=== PATIENT | male | born 1935 | race Caucasian/White ===

== ENCOUNTER 2019-11-07 20:34 | Inpatient (IN) ==
--- NOTE | 2019-11-07 21:53 | Diag Imaging Result Doc PS360 ---
EXAM: CHEST-PORTABLE HISTORY: altered mental status TECHNIQUE: Single view COMPARISON: 05/08/2014 FINDINGS: The lungs are well expanded. The heart is not enlarged. There are sternal wires. The vessels are not distended. There are no infiltrates. No effusion identified. IMPRESSION: Negative exam. Electronically signed by Ronald Garcia 11/07/2019 9:50 PM
[2019-11-07 21:54] LABS: BASO# 0.03 X1000 (0.0-0.2); BASO% 0.2 % (0.0-0.8); EOS# 0.07 X1000 (0.0-0.7); EOS% 0.4 % (0.0-10.0); HEMATOCRIT 40.9 % (42.0-52.0); HEMOGLOBIN 13.5 g/dL (14.0-18.0); IMM GRAN# 0.04 X1000 (0.0-0.04); IMM GRAN% 0.3 % (0.0-0.5); LYMPH# 0.65 X1000 (1.2-3.4); LYMPH% 4.1 % (20.5-51.1); MCH 28.9 PG (27-31); MCV 87.6 FL (81-99); MONO# 0.52 X1000 (0.11-0.59); MONO% 3.3 % (1.7-9.3); MPV 9.4 FL (7.4-10.4); NEUT# 14.39 X1000 (1.4-6.5); NEUT% 91.7 % (42.2-75.2); PLT 170 X1000 (130-400); RBC 4.67 XMIL (4.7-6.1); RDW 13.3 % (11.5-14.5)
--- NOTE | 2019-11-07 21:55 | Diag Imaging Result Doc PS360 ---
EXAM : CT HEAD/C-SPINE W/O CONTRAST HISTORY: fall TECHNIQUE: 1. CT head without intravenous contrast 2. CT cervical spine without intravenous contrast COMPARISON: None. FINDINGS: Head: No parenchymal hemorrhage. No epidural or subdural hematoma. No subarachnoid hemorrhage. There is atrophy with chronic microvascular ischemic changes. Old right basal ganglia lacunar infarct. No mass identified on this noncontrasted exam. No hydrocephalus. No skull fracture. Cervical spine: There are degenerative changes and reversal of the normal curvature. No precervical soft tissue swelling. No subluxation. No fracture. IMPRESSION: Head: No hemorrhage. No injury. Cervical spine: No acute fracture. This exam was performed using automated exposure control, adjustment of mA or kV according to patient size, and/or use of iterative reconstruction technique. Electronically signed by Ronald Garcia 11/07/2019 9:53 PM
[2019-11-07 21:56] LABS: INR 1.1; PROTIME 14.3 Seconds (11.0-16.0)
[2019-11-07 22:09] LABS: ALB/GLOB RATIO 1.3; CREATININE 1.7 mg/dL (0.7-1.2); POTASSIUM 3.8 mmol/L (3.5-5.1); TOTAL BILIRUBIN 1.01 mg/dL (0.20-1.00); TOTAL PROTEIN 7.1 g/dL (6.3-8.3)
--- NOTE | 2019-11-07 22:24 | EKG Report ---
Test Performed on : 11/07/2019 9:30:39 PM Test Reason : Stroke like symptoms Blood Pressure : / mmHG Vent. Rate : 095 BPM Atrial Rate : 095 BPM P-R Int : 190 ms QRS Dur : 096 ms QT Int : 318 ms P-R-T Axes : 052 -31 151 degrees QTc Int : 399 ms Normal sinus rhythm. Possible Left atrial enlargement Left axis deviation Left ventricular hypertrophy with repolarization abnormality Abnormal ECG When compared with ECG of 24-JAN-2014 11:36, T wave inversion now evident in Anterolateral leads Unconfirmed Result
[2019-11-07] MEDS ORDERED: NS 1,000 ML IV ONE (22:29)
--- NOTE | 2019-11-07 22:52 | PROVIDER DOCUMENTATION ---
This chart was entered by Mally Mccarty Scribe, acting as scribe for Cristofer Hernandez MD. HPI-General Adult - General Chief Complaint: Altered Mental Status Stated Complaint: ams,fall Time Seen by Provider: 11/07/19 21:31 Source: patient Allergies/Adverse Reactions: Patient Allergies Allergy/AdvReac Type Severity Reaction Status Date / Time No Known Allergies Allergy Verified 11/08/19 03:27 Home Medications: Home Medication List Medication Instructions Recorded Confirmed Last Taken Type Aspirin 81 mg PO DAILY 12/25/13 11/08/19 04/02/16 07:00 History LISINOpril [Prinivil] 40 mg PO DAILY 12/25/13 11/08/19 04/02/16 07:00 History Metoprolol Succinate 50 mg PO DAILY 12/25/13 11/08/19 04/01/16 07:00 History Potassium Chloride [Klor-Con M10] 10 meq PO BID 12/25/13 11/08/19 04/02/16 07:00 History Amlodipine [Norvasc] 5 mg PO DAILY 04/02/16 11/08/19 04/02/16 07:00 History ATORVAstatin [Lipitor] 10 mg PO QHS 11/08/19 11/08/19 Unknown History Clopidogrel Bisulfate [Clopidogrel] 75 mg PO DAILY 11/08/19 11/08/19 Unknown History Isosorbide Mononitrate E.r. [Imdur] 30 mg PO DAILY 11/08/19 11/08/19 Unknown History Meclizine [Antivert] 12.5 mg PO DAILY PRN PRN 11/08/19 11/08/19 Unknown History - History of Present Illness -Gen Adult Nature of Presenting Problems: pt is a 84 yr old male presenting via EMS after being found in floor, lying on his face by family, family reports they had tried to call pt multiple times this afternoon with no answer. family reports they took pt to PCP this AM after pt became confused, was having difficulty ambulating with his walker and complained of shortness of breath and back pain. per family PCP gave pt a new blood pressure medication but he has not began taking it. family reports last time pt was "normal" was last night. pt lives alone Location of Pain/Injury: reports: back Severity: reports: moderate Onset/Duration: reports: this morning Timing: reports: still present, getting worse Context/Activities at Onset: reports: light activity Modifying Factors: improves with: nothing Associated Symptoms: reports: back/neck pain, dizziness, fatigue, nausea, shortness of breath, vomiting, weakness, trouble walking, other (confusion). denies: cough, fever/chills, headaches, seizure Similar Symptoms Previously?: Yes Recently seen or treated by another doctor?: Yes (pcp- Dr Love today) Review of Systems - Adult - REVIEW OF SYSTEMS - ADULT Constitutional: reports: fatique. denies: chills, fever Eyes: reports: no symptoms reported Ears, Nose, Mouth & Throat: denies: ear pain, sinus problem, throat pain Cardiovascular: denies: chest pain, palpitations, syncope Respiratory: reports: shortness of breath. denies: cough, wheezing Gastrointestinal: reports: nausea, vomiting. denies: abdominal pain, diarrhea Genitourinary: reports: no symptoms reported Musculoskeletal: reports: back pain. denies: joint pain, neck pain Integumentary: reports: no symptoms reported Neurological: reports: loss of balance. denies: dizziness/vertigo, headache/migraines, seizure, syncope Psychiatric: reports: no symptoms reported Endocrine: reports: no symptoms reported Hematologic/Lymphatic: reports: no symptoms reported Allergic/Immunologic: reports: no symptoms reported All Other Systems: Reviewed and Negative Past History - Adult - PAST MEDICAL HISTORY-ADULT Review of Records: reports: Old Records Reviewed, Nursing Assessment Review, Medications Reviewed, Social history reviewed & non-contributory. Major Childhood Illnesses: reports: denies history Cardiovascular: reports: CAD, HTN, hyperlipidemia Respiratory: reports: denies history Gastrointestinal: reports: denies history Obstetrical/Gynecological: reports: denies history Genitourinary: reports: denies history Musculoskeletal: reports: denies history Neurological: reports: denies history Endocrine/Immune: reports: denies history Other Conditions: reports: denies history - PRIOR SURGERIES/PROCEDURES Surgical/Procedure History: reports: CABG (2002), cardiac stent (x 1) - IMMUNIZATION STATUS Childhood Immunizations: See Nurse Assessment Flu Vaccine: See Nurse Assessment - FAMILY HISTORY Family History: reviewed, not pertinent - SOCIAL HISTORY Smoking: chew (snuff) Substance Use: denies Living Situation: alone Physical Exam-General - CONSTITUTIONAL General Appearance: alert, no apparent distress, slow to respond, other (disheveled) - EYES Eyes: PERRL/EOMI - HEAD, EARS, NOSE, MOUTH & THROAT HENMT: normocephalic/atraumatic, moist mucous membranes, normal ENT inspection - NECK Neck: non-tender, full range of motion, supple, normal inspection - RESPIRATORY Respiratory: chest non-tender, lungs clear, normal breath sounds - CARDIOVASCULAR Cardiovascular: normal peripheral pulses, regular rate, rhythm, no edema - GASTROINTESTINAL (ABDOMEN) Abdominal Exam: normal bowel sounds, non tender, soft - LYMPHATIC Lymphatic: no adenopathy - MUSCULOSKELETAL Extremity: normal range of motion, non-tender, pedal edema (bilateral pretibial edema, worse on right) - SKIN Integumentary: normal color, normal turgor, warm/dry - PSYCHIATRIC Psych/Mental Status: disheveled Progress - PLAN OF CARE/RESULTS Progress/Plan/Lab Results: Vital Signs - 8 hr 11/07/19 20:49 Temperature 97.7 F Pulse Rate 104 H Respiratory Rate 15 Blood Pressure 142/72 O2 Sat by Pulse Oximetry 98 Laboratory Results - last 24 hr 11/07/19 11/07/19 11/07/19 20:57 20:57 20:57 WBC 15.70 H RBC 4.67 L Hgb 13.5 L Hct 40.9 L MCV 87.6 MCH 28.9 MCHC 33.0 RDW Std Deviation 13.3 Plt Count 170 MPV 9.4 Immature Gran % (Auto) 0.3 Neut % (Auto) 91.7 H Lymph % (Auto) 4.1 L [place] % (Auto) 3.3 Eos % (Auto) 0.4 Baso % (Auto) 0.2 Immature Gran # (Auto) 0.04 Neut # (Auto) 14.39 H Lymph # (Auto) 0.65 L [place] # (Auto) 0.52 Eos # (Auto) 0.07 Baso # (Auto) 0.03 PT 14.3 INR 1.10 Sodium 140 Potassium 3.8 Chloride 99 Carbon Dioxide 23 L Anion Gap 18 BUN 15 Creatinine 1.7 H Estimated GFR/1.73 m2 39 BUN/Creatinine Ratio 9 Glucose 98 Calculated Osmolality 280 Calcium 10.0 Total Bilirubin 1.01 H AST 37 H ALT 22 Alkaline Phosphatase 94 Total Protein 7.1 Albumin 4.0 Globulin 3.1 Albumin/Globulin Ratio 1.3 Orders Category Date Time Status Cardiac Monitoring DIRECTED Care 11/07/19 21:32 Active Saline Loc NOW Care 11/07/19 21:32 Active CHEST-PORTABLE [RAD] Stat Exams 11/07/19 21:[address] HEAD/C-SPINE W/O CONTRAST [CT] Stat Exams 11/07/19 21:23 Completed CBC WITH ELECTRONIC DIFF [HEME] Stat Lab 11/07/19 20:57 Completed COMPREHENSIVE METABOLIC PANEL [CHEM] Stat Lab 11/07/19 20:57 Completed PROTIME WITH INR [COAG] Stat Lab 11/07/19 20:57 Completed URINALYSIS W/POSS RFLX CULT [URINALYSIS] Stat Lab 11/07/19 21:32 Uncollected URINE DRUG SCREEN Stat Lab 11/07/19 21:32 Uncollected EKG [EKG] Stat Ther 11/07/19 21:32 Draft Result Diagrams: 11/07/19 20:57 11/07/19 20:57 - XRAY 1 XRAY Study: Chest Impression: Normal ( Signed EXAM: CHEST-PORTABLE HISTORY: altered mental status TECHNIQUE: Single view COMPARISON: 05/08/2014 FINDINGS: The lungs are well expanded. The heart is not enlarged. There are sternal wires. The vessels are not distended. There are no infiltrates. No effusion identified. IMPRESSION: Negative exam. Electronically signed by Ronald Garcia 11/07/2019 9:50 PM 11/07/192149 Interpreting Physician: Ronald Garcia MD Dictated Date/Time: 11/07/192149 cc: Cristofer Hernandez MD;) - CT/MRI 1 CT Study: Cervical Spine, Head Impression: Abnormal ( Signed EXAM : CT HEAD/C-SPINE W/O CONTRAST HISTORY: fall TECHNIQUE: 1. CT head without intravenous contrast 2. CT cervical spine without intravenous contrast COMPARISON: None. FINDINGS: Head: No parenchymal hemorrhage. No epidural or subdural hematoma. No subarachnoid hemorrhage. There is atrophy with chronic microvascular ischemic changes. Old right basal ganglia lacunar infarct. No mass identified on this noncontrasted exam. No hydrocephalus. No skull fracture. Cervical spine: There are degenerative changes and reversal of the normal curvature. No precervical soft tissue swelling. No subluxation. No fracture. IMPRESSION: Head: No hemorrhage. No injury. Cervical spine: No acute fracture. This exam was performed using automated exposure control, adjustment of mA or kV according to patient size, and/or use of iterative reconstruction technique. Electronically signed by Ronald Garcia 11/07/2019 9:53 PM 11/07/192152 Interpreting Physician: Ronald Garcia MD Dictated Date/Time: 11/07/192150 cc: Cristofer Hernandez MD;) - CONSULTS/PCP/HOSPITALIST Notification #1 *Consult/PCP/Hospitalist*: Dr. Desouza Time Discussed: 21:30 Consult Disposition: Admit Departure - Departure Date of Disposition Decision: 11/07/19 Time of Disposition Decision: 21:30 DIAGNOSIS: Encephalopathy acute Disposition: ADMITTED INPATIENT 09 Certified Medical Emergency: Emergent Condition: Stable - Critical Care Note This patient required my direct & personal management of CC.: No Attestation - Physician/ XIMENA Attestation Patient care was provided by Advanced Practice Provider:: No The physician spent face to face time with patient:: Yes Advanced Practice Provider documentation review:: Supervising physician onsite and consulted in the evaluation and care of this patient. The physician did have a face to face encounter with the patient. This chart was documented by the indicated scribe, (Mally Mccarty Scribe) and accurately reflects the services I performed and decisions made by me, Cristofer Hernandez MD, as attested by the provider's signature.
[2019-11-07 23:10] LABS: ALLEN TEST YES; BE -1.1 mmoll (-3.0-3.0); BLOOD TYPE ARTERIAL; METHB 1.4 % (0.0-1.5); O2(CT) 17.2 mL/dL (15.0-23.0); O2HB 95.7 % (95.0-99.0); PCO2(98.6) 33 mmHg (35-45); PO2(98.6) 85 mmHg (60-100); SAMPLE BLOOD; SAO2 98.9 % (95.0-100.0); THB 12.7 g/dL (11.5-17.4); pH(98.6) 7.44 (7.35-7.45)
[2019-11-07 23:12] LABS: MODALITY ROOM AIR
[2019-11-08] MEDS ORDERED: ROCEPHIN 1 GM in NS 50 ML IV ONE (00:26)
[2019-11-08 00:36] LABS: URINE SOURCE CATH
[2019-11-08 00:45] LABS: BILIRUBIN URINE NEGATIVE (NEGATIVE); BLOOD URINE LARGE (NEGATIVE); COLOR YELLOW; GLUCOSE URINE NEGATIVE (NEGATIVE); KETONE URINE 10 mg/dL (NEGATIVE); LEUKOCYTES URINE NEGATIVE (NEGATIVE); NITRITE URINE NEGATIVE (NEGATIVE); PH URINE 5.5; PROTEIN URINE TRACE mg/dL (NEGATIVE); SP GRAVITY URINE 1.015; TURBIDITY URINE CLEAR (CLEAR); UR EPITHELIAL CELLS <10 /HPF (<10); URINE BACTERIA NEGATIVE /HPF; URINE RBC <10 /HPF (<10); URINE WBC <10 /HPF (<10); UROBILINOGEN URINE 2 mg/dL (NORMAL)
[2019-11-08 01:00] LABS: UR AMPHETAMINES QUAL NONE DETECTED (NONE DETECT); UR BARBITUATES QUAL NONE DETECTED (NONE DETECT); UR BENZODIAZEPIN QUAL NONE DETECTED (NONE DETECT); UR CANNABINOIDS QUAL NONE DETECTED (NONE DETECT); UR COCAINE QUAL NONE DETECTED (NONE DETECT); UR METHADONE QUAL NONE DETECTED (NONE DETECT); UR OPIATES QUAL NONE DETECTED (NONE DETECT); UR OXYCODONE QUAL NONE DETECTED (NONE DETECT); UR PCP QUAL NONE DETECTED (NONE DETECT)
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
[2019-11-08] MEDS ORDERED: TYLENOL PO PRN (05:49)
[2019-11-08] MEDS ORDERED: ZOFRAN IV PRN (05:49)
[2019-11-08] MEDS ORDERED: NS 1,000 ML IV SCH ×2 (05:49→11:00)
--- NOTE | 2019-11-08 06:39 | Diag Imaging Result Doc PS360 ---
CT THORACIC SPINE W/O CONTRAST, CT LUMBAR SPINE W/O CONTRAST - 11/08/2019 INDICATION: injury COMPARISON: None FINDINGS: Thoracic spine: Alignment is anatomic. No fracture or subluxation. Vertebral body heights are preserved. There is mild multilevel degenerative disc disease. There are median sternotomy wires. There is advanced vascular disease throughout the aorta without evidence of dissection. Ascending thoracic aorta measures 3.7 cm. Lumbar spine: There is mild, grade 1 anterolisthesis of L4 on L5 by about 3 mm. No fractures. There is advanced disc degeneration at L2-L3 and L5-S1. No disc bulge or herniation. Advanced vascular disease of the abdominal aorta without significant aneurysm. No severe central canal stenosis. IMPRESSION: Advanced degenerative and senescent changes. No acute disease. Electronically signed by Alex Osullivan 11/08/2019 6:37 AM
[2019-11-08] MEDS: LOVENOX SUBQ SCH (06:45)
--- NOTE | 2019-11-08 09:43 | Diag Imaging Result Doc PS360 ---
MRI BRAIN W/WO CONTRAST - 11/08/2019 INDICATION: encephalopathy ?? Recurrent CVA COMPARISON: Head CT 11/07/2019 FINDINGS: There is no area of restricted diffusion. Stable mild diffuse cerebral atrophy. Stable moderate periventricular white matter chronic microvascular ischemia. No intracranial mass or hemorrhage. There is no abnormal contrast enhancement. Midline structures are unremarkable. IMPRESSION: Chronic ischemic changes of the brain. No acute process. Electronically signed by Alex Osullivan 11/08/2019 9:40 AM
[2019-11-08] MEDS: NS 1,000 ML IV SCH (11:51)
[2019-11-08 12:03] LABS: ALB/GLOB RATIO 1.7; ALBUMIN 3.2 g/dL (3.5-5.0); CALCIUM 8.5 mg/dL (8.8-10.2); CREATININE 1.5 mg/dL (0.7-1.2); POTASSIUM 3.6 mmol/L (3.5-5.1); TOTAL BILIRUBIN 0.89 mg/dL (0.20-1.00); TOTAL PROTEIN 5.1 g/dL (6.3-8.3)
[2019-11-08 12:08] LABS: BASO# 0.02 X1000 (0.0-0.2); BASO% 0.2 % (0.0-0.8); EOS% 1.2 % (0.0-10.0); HEMATOCRIT 35.2 % (42.0-52.0); HEMOGLOBIN 11.4 g/dL (14.0-18.0); IMM GRAN# 0.02 X1000 (0.0-0.04); IMM GRAN% 0.2 % (0.0-0.5); LYMPH# 1.72 X1000 (1.2-3.4); LYMPH% 19.9 % (20.5-51.1); MCH 28.7 PG (27-31); MCHC 32.4 g/dL (33-37); MCV 88.7 FL (81-99); MONO# 0.55 X1000 (0.11-0.59); MONO% 6.4 % (1.7-9.3); MPV 9.1 FL (7.4-10.4); NEUT# 6.22 X1000 (1.4-6.5); NEUT% 72.1 % (42.2-75.2); PLT 137 X1000 (130-400); RBC 3.97 XMIL (4.7-6.1); RDW 13.2 % (11.5-14.5); WBC 8.63 X1000 (4.8-10.8)
[2019-11-08 12:51] LABS: SED RATE 3 mm/hr (0-15)
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
[2019-11-08] MEDS: MAXIPIME 1 GM in NS 50 ML IV SCH (14:00)
[2019-11-09] MEDS: NS 1,000 ML IV SCH ×4 (00:43→17:55)
[2019-11-09] MEDS: MAXIPIME 1 GM in NS 50 ML IV SCH ×2 (01:32→13:12)
[2019-11-09] MEDS: LOVENOX SUBQ SCH (05:56)
[2019-11-09 06:54] LABS: BASO# 0.02 X1000 (0.0-0.2); BASO% 0.2 % (0.0-0.8); EOS# 0.19 X1000 (0.0-0.7); EOS% 2.1 % (0.0-10.0); HEMATOCRIT 35.1 % (42.0-52.0); HEMOGLOBIN 11.4 g/dL (14.0-18.0); IMM GRAN# 0.02 X1000 (0.0-0.04); IMM GRAN% 0.2 % (0.0-0.5); LYMPH# 1.06 X1000 (1.2-3.4); LYMPH% 11.9 % (20.5-51.1); MCH 28.9 PG (27-31); MCHC 32.5 g/dL (33-37); MCV 88.9 FL (81-99); MONO# 0.49 X1000 (0.11-0.59); MONO% 5.5 % (1.7-9.3); MPV 9.2 FL (7.4-10.4); NEUT# 7.13 X1000 (1.4-6.5); NEUT% 80.1 % (42.2-75.2); PLT 137 X1000 (130-400); RBC 3.95 XMIL (4.7-6.1); RDW 13.1 % (11.5-14.5); WBC 8.91 X1000 (4.8-10.8)
[2019-11-09 07:07] LABS: CALCIUM 8.5 mg/dL (8.8-10.2); CREATININE 1.4 mg/dL (0.7-1.2); MAGNESIUM 1.5 mg/dL (1.5-2.7); POTASSIUM 3.5 mmol/L (3.5-5.1)
[2019-11-09] MEDS ORDERED: MAGNESIUM SULFATE 2 GM/S.W.I. 2 GM/50 ML IVPB IV ONE (08:42)
[2019-11-09] MEDS: TOPROL XL PO SCH (10:17)
[2019-11-09] MEDS: ASPIRIN PO SCH (10:17)
[2019-11-09] MEDS: NORVASC PO SCH (10:18)
[2019-11-09] MEDS: PLAVIX PO SCH (10:18)
[2019-11-09] MEDS: IMDUR PO SCH (10:18)
[2019-11-09] MEDS ORDERED: LACTULOSE PO ONE (14:58)
--- NOTE | 2019-11-09 16:05 | EEG REPORT ---
DATE: 11/08/2019 EEG NUMBER: [id number] COMMENT: This is a digitally recorded EEG on an 84-year-old patient with baseline cognitive impairment, recent increased confusion, recently found down, question of seizure. FINDINGS: During waking, 7 to 7.5 Hz posterior rhythm is present bilaterally and reacts at times to eye opening. Background contains polymorphic and rhythmic theta over the frontal and central regions symmetrically. There is infrequent frontal delta while awake. Drowsing occurred with appearance of more generalized slowing. Stage 2 sleep was not recorded. Photic stimulation did not significantly alter the record. No definite epileptiform discharge was identified. INTERPRETATION: Abnormal EEG because of generalized slowing. CORRELATION: This is indicative of a diffuse encephalopathy and is nonspecific. The absence of epileptiform discharges on a single EEG does not exclude a clinical diagnosis of seizures, but there is nothing on this record to suggest the presence of a seizure disorder. cc: Dary Arora III, MD
[2019-11-09] MEDS: HALDOL IM PRN ×2 (17:57→23:50)
[2019-11-09 18:14] LABS: ALLEN TEST YES; BE 0.1 mmoll (-3.0-3.0); BLOOD TYPE ARTERIAL; METHB 1.3 % (0.0-1.5); O2(CT) 15.5 mL/dL (15.0-23.0); O2HB 94.9 % (95.0-99.0); PCO2(98.6) 33 mmHg (35-45); PO2(98.6) 79 mmHg (60-100); SAMPLE BLOOD; SAO2 98.3 % (95.0-100.0); THB 11.6 g/dL (11.5-17.4); pH(98.6) 7.46 (7.35-7.45)
[2019-11-09 18:15] LABS: MODALITY ROOM AIR
--- NOTE | 2019-11-09 18:16 | PROGRESS NOTE ---
DATE: 11/09/2019 SUBJECTIVE: The patient is awake and alert. He was able to take his medications and eat breakfast this morning. His family is present at the bedside. OBJECTIVE: Vital Signs: Temperature 98.1 degrees, blood pressure 148/67, heart rate 73, respirations 16, O2 saturation 99% on room air. General: This is a chronically ill-appearing elderly male sitting up in bed in no acute distress. Heart: S1, S2 normal. Regular rate and rhythm. Lungs: Equal air entry bilaterally. No wheezing. No rales. No rhonchi. Abdomen: Positive bowel sounds. Soft, nontender, nondistended. Extremities: No edema. No cyanosis. Neurologic: The patient is alert. LABS: White blood cell count 8.9, hemoglobin 11, hematocrit 35, platelets 137,000. Sodium 139, potassium 3.5, chloride 101, CO2 23, BUN 13, creatinine 1.4, glucose 60. ASSESSMENT AND PLAN: 1. Global encephalopathy. The etiology is unknown. The imaging does not give a clear picture of the cause for the patient's confusion. The laboratory studies today also are stable. We will continue to monitor closely for improvement. 2. Acute rhabdomyolysis. Continue on IV fluid hydration. 3. Acute kidney injury. Improved. Continue on IV fluid. 4. Dementia. Aware. 5. Coronary artery disease. Continue on the current cardiac medications. 6. Hypertension. Continue on the current antihypertensive regimen. 7. Constipation. We will start the patient on laxative therapy. 8. Deep vein thrombosis prophylaxis. Continue on Lovenox. cc: Sharmila Majano MD MTDD
--- NOTE | 2019-11-09 19:03 | Diag Imaging Result Doc PS360 ---
EXAM: CT HEAD W/O CONTRAST - 11/09/2019 HISTORY: encephalopathy TECHNIQUE: CT head without contrast COMPARISON: 11/07/2019 FINDINGS: There are atrophic changes and chronic microvascular ischemic changes similar to prior. There is no indication of recent infarct, although acute infarcts may not be immediately visible. There are atherosclerotic calcifications noted at the base the brain. There is no evidence of intracranial hemorrhage, mass effect, or midline shift. There is no evidence of skull fracture. IMPRESSION: Atrophic changes and chronic microvascular ischemic changes similar to prior. No visible acute intracranial abnormality. This exam was performed using automated exposure control, adjustment of mA or kV according to patient size, and/or use of iterative reconstruction technique. Electronically signed by Scott Gilliam 11/09/2019 7:01 PM
--- NOTE | 2019-11-09 19:21 | NEUROLOGY PROGRESS NOTE ---
DATE: 11/09/2019 Mr. Berg is awake and alert now. He was mostly attentive during my time at the bedside today. He reports not feeling well a few days ago but really does not seem to remember events leading to this hospitalization. He was not able to tell me the name of the hospital, to identify this as a hospital or to tell me the date. I did not test his cognitive function further. He has equal power in hand closing supervisor and good limb power on gross bedside testing. There is good lateral extraocular movement and slightly limited upgaze. Facial motility is symmetric. He was able to count fingers in the left and right visual field consistently. I did not test his visual acuity. I did not test his gait. Neck is supple. IMPRESSION: Likely baseline cognitive impairment with recent exacerbation associated with some fairly minor metabolic findings, moderately elevated blood pressure, concern that he might have fallen and struck his head. EEG showed generalized slowing but no epileptiform discharge or other evidence of seizure. Since he seems improved, certainly more alert and attentive today, I do not think we need to do anything urgently from Neurology standpoint. Thanks for asking us to see Mr. Berg. cc: MD JERRY Bush IIID
[2019-11-09] MEDS ORDERED: MIRALAX PO SCH (21:00)
[2019-11-10] MEDS: MAXIPIME 1 GM in NS 50 ML IV SCH ×4 (02:27→14:24)
[2019-11-10] MEDS: LOVENOX SUBQ SCH (05:59)
[2019-11-10] MEDS: NS 1,000 ML IV SCH ×3 (05:59→17:02)
[2019-11-10 06:56] LABS: HEMOGLOBIN 11.6 g/dL (14.0-18.0); MCH 28.4 PG (27-31); MCHC 33.1 g/dL (33-37); MCV 85.8 FL (81-99); MPV 9.2 FL (7.4-10.4); RBC 4.08 XMIL (4.7-6.1); RDW 12.8 % (11.5-14.5); WBC 9.35 X1000 (4.8-10.8)
[2019-11-10 07:24] LABS: AGAP 15; BUN 12 mg/dL (8-22); CALCIUM 8.4 mg/dL (8.8-10.2); CHLORIDE 102 mmol/L (98-107); COSMO 278; CREATININE 1.1 mg/dL (0.7-1.2); ESTIMATED GFR > 60; GLUCOSE 86 mg/dL (70-104); POTASSIUM 3.1 mmol/L (3.5-5.1); SODIUM 140 mmol/L (136-145); TCO2 23 mmol/L (25-35)
[2019-11-10] MEDS ORDERED: POTASSIUM CHLORIDE 20% LIQUID PO ONE (09:37)
[2019-11-10] MEDS: TOPROL XL PO SCH (10:17)
[2019-11-10] MEDS: IMDUR PO SCH (10:18)
[2019-11-10] MEDS: PLAVIX PO SCH (10:18)
[2019-11-10] MEDS: NORVASC PO SCH (10:18)
[2019-11-10] MEDS: ASPIRIN PO SCH (10:18)
[2019-11-10] MEDS ORDERED: MAGNESIUM SULFATE 2 GM/S.W.I. 2 GM/50 ML IVPB IV ONE (10:33)
--- NOTE | 2019-11-10 15:46 | PROGRESS NOTE ---
DATE: 11/10/2019 SUBJECTIVE: The patient is resting comfortably in bed. He was noted to be very confused last night and required Haldol. OBJECTIVE: Vital Signs: Temperature 98.2 degrees, blood pressure 139/58, heart rate 66, respirations 16, O2 saturation 98% on room air. General: This is a chronically ill-appearing elderly male lying in bed in no acute distress. Heart: S1, S2 normal. Regular rate and rhythm. Lungs: Clear to auscultation bilaterally. Abdomen: Positive bowel sounds. Soft, nontender, nondistended. Extremities: No edema, no cyanosis. Neurologic: The patient is oriented to person but appears to be confused. LABS: Hemoglobin 11, hematocrit 35, platelets 149,000. Sodium 140, potassium 3.1, CK 8872, magnesium 1.7, BUN 12, creatinine 1.1. ASSESSMENT AND PLAN: 1. Global encephalopathy. The patient is awake but he still has periods of confusion during the day with as well as at night, the EEG was reviewed. Neurology following. 2. Acute rhabdomyolysis. Worse today, will increase IV fluid rate and monitor closely. 3. Acute kidney injury. Slowly resolving. Continue with IV fluids. 4. Dementia. Aware. 5. Hypertension. Continue on the current antihypertensive regimen. 6. Coronary artery disease. Continue on the current cardiac regimen. 7. Deep vein thrombosis prophylaxis. Continue on Lovenox. 8. Disposition. Continue with physical therapy. cc: Sharmila Majano MD
[2019-11-10] MEDS: STERILE WATER INJ. INJ PRN (19:41)
[2019-11-10] MEDS: GEODON IM PRN (19:42)
[2019-11-11] MEDS: MAXIPIME 1 GM in NS 50 ML IV SCH ×2 (00:53→14:17)
[2019-11-11] MEDS: NS 1,000 ML IV SCH ×3 (00:53→17:19)
[2019-11-11] MEDS: LOVENOX SUBQ SCH (05:34)
[2019-11-11 07:03] LABS: HEMATOCRIT 36.1 % (42.0-52.0); HEMOGLOBIN 11.8 g/dL (14.0-18.0); MCH 28.2 PG (27-31); MCHC 32.7 g/dL (33-37); MCV 86.4 FL (81-99); RBC 4.18 XMIL (4.7-6.1); WBC 7.92 X1000 (4.8-10.8)
[2019-11-11 07:04] LABS: MPV 9.2 FL (7.4-10.4)
[2019-11-11 08:08] LABS: AGAP 13; ALBUMIN 3.2 g/dL (3.5-5.0); BUN 11 mg/dL (8-22); CHLORIDE 101 mmol/L (98-107); COSMO 276; CREATININE 1.1 mg/dL (0.7-1.2); ESTIMATED GFR > 60; GLUCOSE 88 mg/dL (70-104); POTASSIUM 3.7 mmol/L (3.5-5.1); SODIUM 139 mmol/L (136-145); TCO2 25 mmol/L (25-35)
[2019-11-11] MEDS: STERILE WATER INJ. INJ PRN (08:13)
[2019-11-11] MEDS: GEODON IM PRN (08:14)
[2019-11-11] MEDS: TOPROL XL PO SCH (09:09)
[2019-11-11] MEDS: NORVASC PO SCH (09:09)
[2019-11-11] MEDS: PLAVIX PO SCH (09:09)
[2019-11-11] MEDS: IMDUR PO SCH (09:09)
[2019-11-11] MEDS: ASPIRIN PO SCH (09:10)
[2019-11-11] MEDS ORDERED: SEROQUEL PO ONE (12:07)
[2019-11-11] MEDS ORDERED: ATIVAN IV ONE (13:12)
--- NOTE | 2019-11-11 14:37 | EKG Report ---
Test Performed on : 11/11/2019 1:56:47 PM Test Reason : QT interval Blood Pressure : / mmHG Vent. Rate : 081 BPM Atrial Rate : 081 BPM P-R Int : 138 ms QRS Dur : 086 ms QT Int : 388 ms P-R-T Axes : 022 -26 104 degrees QTc Int : 450 ms Normal sinus rhythm. Possible Left atrial enlargement Septal infarct , age undetermined ST & T wave abnormality, consider lateral ischemia Abnormal ECG When compared with ECG of 07-NOV-2019 21:30, (Unconfirmed) Septal infarct is now present Nonspecific T wave abnormality, worse in Inferior leads QT has lengthened Confirmed by Roby BO, Lynsey Wilson ([id number]) on 11/12/2019 5:30:06 PM
--- NOTE | 2019-11-11 15:11 | Diag Imaging Result Doc PS360 ---
EXAM: CHEST-1 VIEW - 11/11/2019 HISTORY: dyspnea TECHNIQUE: Portable chest one view COMPARISON: 11/07/2019 FINDINGS: Heart size appears normal. There are sternal wires from previous surgery again seen. There are stable right basilar granuloma from old granulomatous disease. There is mild prominence of central vascular markings. There is no dense consolidation, gross pulmonary edema, pleural effusion, or pneumothorax identified. IMPRESSION: Mild prominence of central vascular markings. No other evidence of acute disease. Electronically signed by Scott Gilliam 11/11/2019 3:08 PM
[2019-11-11 16:38] LABS: CK INDEX 0.5 (0.0-2.5); CK-MB 17.86 ng/mL (0.0-5.0)
--- NOTE | 2019-11-11 17:14 | PROGRESS NOTE ---
DATE: 11/11/2019 SUBJECTIVE: The patient was noted to be very agitated overnight and this morning he was not oriented at all. He received Geodon, Seroquel, and Ativan, and was transferred to [facility]. OBJECTIVE: Vital Signs: Temperature 98.4 degrees, blood pressure 110/44, heart rate 71, respirations 22, O2 saturation 100% on 2 L nasal cannula. Intake 4 L. Output 850. General: This is a chronically ill-appearing, elderly male lying in bed, in no acute distress. Heart: S1, S2 normal. Regular rate and rhythm. Lungs: Clear to auscultation bilaterally. No wheezing. No rales. No rhonchi. Abdomen: Positive bowel sounds. Soft, nontender, nondistended. Extremities: The right leg is for bigger than the left. Neurologic: The patient is very agitated and moving all over the bed. He is unable to answer questions appropriately. LABS: White blood cell count 7.9, hemoglobin 11, hematocrit 36, platelets 169,000. Sodium 139, potassium 3.7, chloride 101, CO2 25, BUN 11, creatinine 1.1, glucose 88, phosphorus 2, magnesium 1.8. CK 3,869. Troponin 194. Chest x-ray reveals no acute disease. EKG shows normal sinus rhythm. ASSESSMENT AND PLAN: 1. Global encephalopathy. The patient's mental status is worse today. His imaging and EEG do not reveal an etiology for the patient's confusion. He has no active infection that we have been able to find at this time. We will await further recommendations from the Neurologist. 2. Elevated troponin. We will order an echocardiogram and follow the cardiac enzymes and EKGs closely. Continue on Aspirin, Toprol, and plavix. 3. Acute rhabdomyolysis. Slowly improving. Continue with IV fluids. We will monitor closely. 4. Acute kidney injury. Resolved. 5. Dementia. Aware. 6. Hypertension. Controlled. 7. Hypophosphatemia. We will replace the patient's phosphorus. 8. Coronary artery disease. Continue on the current cardiac medications. 9. Deep vein thrombosis prophylaxis. Continue on Lovenox. cc: Sharmila Majano MD MTDD
[2019-11-11 17:20] LABS: URINE SOURCE CATH
[2019-11-11 17:29] LABS: BILIRUBIN URINE NEGATIVE (NEGATIVE); BLOOD URINE MODERATE (NEGATIVE); COLOR YELLOW; GLUCOSE URINE NEGATIVE (NEGATIVE); KETONE URINE 20 mg/dL (NEGATIVE); LEUKOCYTES URINE NEGATIVE (NEGATIVE); NITRITE URINE NEGATIVE (NEGATIVE); PH URINE 5.5; PROTEIN URINE TRACE mg/dL (NEGATIVE); SP GRAVITY URINE 1.012; TURBIDITY URINE CLEAR (CLEAR); UR EPITHELIAL CELLS <10 /HPF (<10); URINE BACTERIA NEGATIVE /HPF; URINE RBC <10 /HPF (<10); URINE WBC <10 /HPF (<10); UROBILINOGEN URINE NORMAL (NORMAL)
[2019-11-11] MEDS: SEROQUEL PO SCH (20:08)
--- NOTE | 2019-11-11 21:41 | EKG Report ---
Test Performed on : 11/11/2019 9:05:59 PM Test Reason : Elevated troponin Blood Pressure : / mmHG Vent. Rate : 078 BPM Atrial Rate : 078 BPM P-R Int : 158 ms QRS Dur : 102 ms QT Int : 400 ms P-R-T Axes : 032 -31 139 degrees QTc Int : 456 ms Normal sinus rhythm. Possible Left atrial enlargement Left axis deviation ST & T wave abnormality, consider lateral ischemia Abnormal ECG When compared with ECG of 11-NOV-2019 13:56, (Unconfirmed) ST no longer depressed in Anterior leads Confirmed by Roby BO MRosa M Wilson ([id number]) on 11/12/2019 5:30:18 PM
[2019-11-11 22:39] LABS: CK INDEX 0.5 (0.0-2.5); CK-MB 12.08 ng/mL (0.0-5.0)
[2019-11-12] MEDS: NS 1,000 ML IV SCH (00:25)
[2019-11-12] MEDS: MAXIPIME 1 GM in NS 50 ML IV SCH (00:30)
[2019-11-12] MEDS: LOVENOX SUBQ SCH (04:55)
[2019-11-12 06:12] LABS: HEMATOCRIT 30.3 % (42.0-52.0); HEMOGLOBIN 9.9 g/dL (14.0-18.0); MCH 29.2 PG (27-31); MCHC 32.7 g/dL (33-37); MCV 89.4 FL (81-99); MPV 9.1 FL (7.4-10.4); RBC 3.39 XMIL (4.7-6.1); RDW 13.5 % (11.5-14.5); WBC 8.35 X1000 (4.8-10.8)
[2019-11-12 06:33] LABS: AGAP 14; ALBUMIN 2.7 g/dL (3.5-5.0); BUN 13 mg/dL (8-22); CALCIUM 8.7 mg/dL (8.8-10.2); CHLORIDE 108 mmol/L (98-107); CHOLESTEROL 117 mg/dL (0-200); COSMO 286; CREATININE 1.2 mg/dL (0.7-1.2); ESTIMATED GFR 58; GLUCOSE 80 mg/dL (70-104); HDL 39 mg/dL (35-55); LDL 60 mg/dL; PHOSPHORUS 2.6 mg/dL (2.7-4.5); POTASSIUM 3.6 mmol/L (3.5-5.1); SODIUM 144 mmol/L (136-145); TCO2 22 mmol/L (25-35); TRIGLYCERIDES 92 mg/dL (39-160); VLDL 18 mg/dL
[2019-11-12 06:55] LABS: CK PROFILE 1391 U/L (24-204)
[2019-11-12 07:10] LABS: CK INDEX 0.5 (0.0-2.5); CK-MB 6.81 ng/mL (0.0-5.0)
--- NOTE | 2019-11-12 07:28 | Diag Imaging Result Doc PS360 ---
EXAM: CHEST-1 VIEW HISTORY: dyspnea TECHNIQUE: Single view COMPARISON: 11/11/2019 FINDINGS: The lungs are well expanded. The heart is not enlarged. There are sternal wires. The vessels are not distended. There are mild increased markings in the left lung base. No effusion identified. IMPRESSION: There appears to be a small left lower lobe infiltrate Electronically signed by Ronald Garcia 11/12/2019 7:26 AM
--- NOTE | 2019-11-12 07:44 | EKG Report ---
Test Performed on : 11/12/2019 07:06:16 AM Test Reason : QT interval Blood Pressure : / mmHG Vent. Rate : 083 BPM Atrial Rate : 083 BPM P-R Int : 166 ms QRS Dur : 104 ms QT Int : 340 ms P-R-T Axes : 038 -35 145 degrees QTc Int : 399 ms Sinus rhythm. with premature atrial complexes. Possible Left atrial enlargement Left axis deviation Left ventricular hypertrophy with repolarization abnormality Abnormal ECG When compared with ECG of 11-NOV-2019 21:05, (Unconfirmed) premature atrial complexes. are now present QT has shortened Confirmed by Lynsey Ca MD ([id number]) on 11/12/2019 5:30:55 PM
[2019-11-12] MEDS: ASPIRIN PO SCH (08:10)
[2019-11-12] MEDS: IMDUR PO SCH (08:10)
[2019-11-12] MEDS: NORVASC PO SCH (08:10)
[2019-11-12] MEDS: TOPROL XL PO SCH (08:11)
[2019-11-12] MEDS: PLAVIX PO SCH (08:11)
[2019-11-12] MEDS: SEROQUEL PO SCH ×2 (08:11→20:14)
[2019-11-12] MEDS ORDERED: OFIRMEV 1000 MG/ISOTONIC SOLN 1,000 MG/100 ML BOTTLE IV PRN (08:29)
[2019-11-12] MEDS ORDERED: VANCOMYCIN IV PER PHARMACY MISC SCH (08:45)
--- NOTE | 2019-11-12 08:48 | Diag Imaging Result Doc PS360 ---
EXAM: CHEST-PORTABLE HISTORY: rule out PNA TECHNIQUE: Single view COMPARISON: 11/12/2019 FINDINGS: The lungs are well expanded. The heart is not enlarged. There are sternal wires. The vessels are not distended. There are mild increased markings in the left lung base. No effusion identified. IMPRESSION: Left basilar atelectasis versus a small infiltrate similar to the prior exam. Electronically signed by Ronald Garcia 11/12/2019 8:46 AM
[2019-11-12 09:44] LABS: URINE SOURCE CATH
[2019-11-12 09:59] LABS: BILIRUBIN URINE NEGATIVE (NEGATIVE); BLOOD URINE SMALL (NEGATIVE); COLOR YELLOW; GLUCOSE URINE NEGATIVE (NEGATIVE); KETONE URINE 40 mg/dL (NEGATIVE); LEUKOCYTES URINE SMALL (NEGATIVE); NITRITE URINE NEGATIVE (NEGATIVE); PROTEIN URINE TRACE mg/dL (NEGATIVE); SP GRAVITY URINE 1.018; TURBIDITY URINE CLEAR (CLEAR); UROBILINOGEN URINE NORMAL (NORMAL)
[2019-11-12] MEDS ORDERED: VANCOMYCIN 2.2 GM in NS 500 ML IV ONE (10:00)
[2019-11-12 10:01] LABS: UR EPITHELIAL CELLS <10 /HPF (<10); URINE BACTERIA NEGATIVE /HPF; URINE RBC <10 /HPF (<10)
--- NOTE | 2019-11-12 10:24 | CARDIOLOGY CONSULTATION ---
DATE: 11/12/2019 CHIEF COMPLAINT: Acute confusion and weakness. All history is obtained via the H and P, as well as a discussion with his sister. HISTORY OF PRESENT ILLNESS: Mr. Villa Berg is an 84-year-old, white male with a history of coronary disease and bypass grafting, normally followed by Dr. Driscoll as an outpatient, last visit in 02/2019. He was apparently doing well up until Tuesday morning, when he was more confused per his sister. Apparently, the day previous, he was in his usual state. He does have an issue with repeating a lot of things, and may carry a history of baseline dementia, but lives independently, functions enough to complete all of his ADL, and up until admission, he was actually driving. Sister is not aware of any acute pain complaints, other than the patient just saying he did not feel well on the day of presentation. Since then, he has been very confused, very difficult to get any sort of history from. He would not open his eyes to physical or verbal stimuli today. He moaned briefly, but otherwise did not participate in the exam or history. PAST MEDICAL HISTORY: 1. From chart review, is significant for coronary artery disease with coronary artery bypass grafting. This was done in 2002. He had a GREEN to the LAD, vein graft to an OM, vein graft to a PDA. His last cardiac catheterization was performed in 2013. At that time, the left main had a mid vessel 30% lesion. The left anterior descending had an occlusion in the proximal vessel with severe small-vessel disease in multiple diagonals at that site. Mid and distal LAD were visualized through an FLORES. FLORES was patent, although it had some tortuosity in the proximal vessel. Very small distal left anterior descending visualized through the FLORES. Circumflex is small overall with several aneurysmal segments in the proximal and mid vessel. AV circumflex was severely diseased, and bypassed obtuse marginal was visualized with competitive flow. The saphenous vein graft to the OM had mild ectasia throughout. It connected to a large OM system with mild diffuse disease. The right coronary has moderate-to- severe ectatic vessel in the proximal vessel, with occlusion in the mid vessel. Small RV branch seen at the site of the occlusion, which has a severe ostial lesion. The remainder of the RV branch appeared to be relatively normal. The saphenous vein graft to the right coronary has an ostial 90% lesion. The ostial 90% lesion was stented at [facility] the following day with a 3.5 x 15 mm Xience drug-eluting stent. Last nuclear scan was performed in 07/2017. He had normal perfusion, ejection fraction of 73%. 2. Hypertension. 3. Hyperlipidemia. 4. Smokeless tobacco use. 5. Chronic renal insufficiency. 6. Possible mild dementia. SOCIAL HISTORY: Lives independently. Smokeless tobacco use. FAMILY HISTORY: Unable to be obtained secondary to the patient's confusion. REVIEW OF SYSTEMS: Unable to be obtained secondary to the patient's confusion. PHYSICAL EXAMINATION: Vital Signs: The patient was febrile to 100.7 this morning at 4 a.m. His heart rates were anywhere from the 70s to the 90s. His blood pressure was 136/52. General: He is in no acute distress. Again very confused, does not interact with the examiner, or participate in the physical exam or history. HEENT: Oropharynx is moist. Poor dentition. Eye examination shows pink conjunctivae, white sclerae. Neck: No obvious thyromegaly or thyroid tenderness. Cardiovascular: He sounds to be in a regular rate and rhythm. He has no obvious murmurs. He has no S3. He has no lower extremity edema. He has warm and well perfused extremities. Chest: Clear bilaterally. He has no increased work of breathing. Abdomen: Soft, nontender, nondistended. No obvious organomegaly. Skin: Warm and dry throughout without any rashes. Neurological: He seems to be moving all extremities, but he does not cooperate with the exam or follow commands. PERTINENT DATA: His EKG on 11/07/2019 at 2130 shows sinus rhythm. He has ST depression noted in the lateral leads, suggestive of possible ischemia. This appears different from his EKG in 02/2019. Subsequent EKG on 11/11/2019 at 1356 shows some minor improvement in the ST depression. Subsequent EKG on 11/11/2019 at 2105 shows sinus rhythm, return of more significant ST depression in the lateral leads. This is consistent with the EKG on 11/12/2019 at 7:06. His most recent chest x-ray today demonstrates left basilar atelectasis versus a small infiltrate. Lab data shows white count 8.3, hematocrit of 30, platelet count 156,000. His sodium is 144, potassium 3.6, his BUN is 13, creatinine is 1.2. His CK initially was 7248 on presentation. That has subsequently trended down eventually to 1391 today. He had a troponin checked, which was 194. Subsequent check 6 hours later was 198, and check roughly 8 hours after that was 178. His LDL is 60. His UA is pending. ASSESSMENT: Mr. Berg is an 84-year-old male who presented with acute confusion. PLAN: At this point, the patient may be experiencing ischemia from a combination of infectious symptoms, as well as not taking his p.o. antianginals. Previously, he was on isosorbide, metoprolol, and amlodipine, as well as aspirin, Lipitor, and Plavix as anti-ischemics/antilipid and antiplatelet agents. He has not been receiving any of these oral medications. We will try initiating back his beta-blockade and nitroglycerin via nitroglycerin paste and IV Lopressor. We will follow up on the echocardiogram results. I do not believe clinically this is acute coronary syndrome. It is more likely supply/demand mismatch in a patient with baseline severe coronary disease who was not taking his antianginal medications. We will try to adjust his medical therapy, and follow up on his echo. cc: Walter Kang MD
[2019-11-12] MEDS: NITROGLYCERIN TOP SCH ×3 (10:31→21:12)
[2019-11-12] MEDS: CLINIMIX E 4.25%-5% SOLUTION 1,000 ML IV SCH ×2 (10:31→20:15)
[2019-11-12] MEDS: LOPRESSOR IV SCH ×3 (10:31→21:12)
[2019-11-12] MEDS: ZOSYN 3.375 GM in NS 50 ML IV SCH ×3 (10:32→21:12)
--- NOTE | 2019-11-12 18:05 | Extremity Venous Study ---
PROCEDURE NAME: Venous U/S Bilateral Legs - 11/08/2019 REFERRING PHYSICIAN: Dr. Desouza. REFERRING PHYSICIAN: Dr. Saunders. IT QUALITY ANALYST: Donald. INDICATIONS: Bilateral leg swelling, there is comparison study on 04/02/2016. FINDINGS: The deep and superficial veins of both lower extremities were imaged throughout their course, they are compressible, patent without thrombus. INTERPRETATION: No DVT or SVT of either lower extremity. This is unchanged compared to the prior study on 04/02/2016. cc: MD Whitley Brunner MD
--- NOTE | 2019-11-12 19:00 | PROGRESS NOTE ---
DATE: 11/12/2019 SUBJECTIVE: The patient is currently lethargic. He has been too sleepy to try and eat, when he is awake he is confused. OBJECTIVE: Vital Signs: Temperature 98.9 degrees, blood pressure 139/60, heart rate 84, respirations 22, O2 saturations 100% on room air, intake 1.4 L, output 500. General: This is a chronically ill-appearing elderly male lying in bed in no acute distress. Heart: S1, S2 normal. Regular rate and rhythm. Lungs: Equal air entry bilaterally. No wheezing, no rales, no rhonchi. Abdomen: Positive bowel sounds. Soft, nontender, nondistended. Extremities: No edema, no cyanosis, no calf tenderness. Neuro: The patient is lethargic. He does respond to painful stimuli. LABS: White blood cell count 8.3, hemoglobin 9.9, hematocrit 30, platelets 156,000. Sodium 144, potassium 3.6, chloride 108, CO2 22, BUN 13, creatinine 1.2, glucose 80, phosphorus 2.6. CK 1397, troponin T 178. IMAGING: Chest x-ray shows a small infiltrate in the left base. ASSESSMENT AND PLAN: 1. Global encephalopathy. The patient remains confused, according to the nursing staff the patient has periods of agitation and then requires Haldol. So far the patient's imaging does not reveal a source for his confusion. He does have an infiltrate that showed up on the x- ray today and he was febrile this morning. Will adjust the patient's antibiotics. Repeat cultures have been obtained. Neurology is following. A repeat EEG was ordered for today. The case was discussed with . 2. Elevated troponin. The patient's cardiac enzymes are elevated. The patient has been receiving his cardiac medications up until this morning due to his altered mental status. An echocardiogram has been ordered. Cardiology is following. 3. Left basilar pneumonia. The antibiotics have been adjusted and repeat cultures have been obtained. 4. Acute rhabdomyolysis. Slowly improving. 5. Severe protein calorie malnutrition. The patient has been started on Clinimix. 6. Dementia. Aware. 7. Coronary artery disease. Continue on the current cardiac medications. 8. Deep vein thrombosis prophylaxis. Continue on Lovenox. 9. Disposition. Palliative Care has been consulted to assist with goals of care. The patient's family was updated on the patient's medical condition this morning at the bedside. cc: Sharmila Majano MD MTDD
--- NOTE | 2019-11-12 19:56 | NEUROLOGY PROGRESS NOTE ---
DATE: 11/12/2019 SUBJECTIVE: Mr. Berg has been more difficult to keep alert. He had mild temperature elevation of 100.7 and then 100.1 earlier this morning, but is afebrile now. WBC count is 8000. CK declined from 7000 to 1000. Chest x-ray raises question of left basilar infiltrate. Brain MRI 11/08/2019 showed chronic changes and no evidence of inflammation. EEG 11/08/2019 showed generalized slowing with no definite epileptiform discharge. He received 2 doses of ziprasidone 10 mg, once on 11/10/2019 and once on 11/11/2019. He received quetiapine 25 mg on 11/11/2019. He received lorazepam 1 mg on 11/11/2019. He had 4 days of cefepime before that was stopped earlier today. On exam, he is awake briefly with persistent noxious stimulation. He followed simple commands inconsistently. When not vigorously stimulated, he sinks back to sleep. He did move about spontaneously, shifting the bed covers, moving his arms, using his hands appropriately. He did not speak to me. He has full lateral eye movement with passive head turning. Pupils react to light. Facial motility is symmetric. Head is unremarkable. Neck is supple. Limb tone is symmetric. Plantar response is silent bilaterally. IMPRESSION: Global encephalopathy, uncertain etiology. There is clear history of baseline cognitive impairment. I suspect he has exacerbation of his encephalopathy associated with medical illness and hospitalization. Defervescence is reassuring. I do not see clinical evidence of central nervous system infection. If he develops more fever, stiff neck or other specific features, we might need to consider lumbar puncture, but I do not think that is necessary now. I do not have any urgent suggestion from Neurology standpoint. I put in phone call for his sister, but her cellphone voicemail is not set up. I did not speak with family today. Thanks for asking Neurology to see Mr. Berg. cc: MD CHACHO Bush III
[2019-11-13] MEDS: LOPRESSOR IV SCH ×4 (03:31→20:35)
[2019-11-13] MEDS: ZOSYN 3.375 GM in NS 50 ML IV SCH ×4 (03:32→21:45)
[2019-11-13] MEDS: NITROGLYCERIN TOP SCH ×4 (03:32→21:45)
[2019-11-13] MEDS: CLINIMIX E 4.25%-5% SOLUTION 1,000 ML IV SCH ×2 (05:36→20:38)
[2019-11-13 06:13] LABS: HEMATOCRIT 32.2 % (42.0-52.0); HEMOGLOBIN 10.8 g/dL (14.0-18.0); MCH 29.3 PG (27-31); MCHC 33.5 g/dL (33-37); MCV 87.3 FL (81-99); MPV 8.9 FL (7.4-10.4); RBC 3.69 XMIL (4.7-6.1); RDW 13.2 % (11.5-14.5); WBC 8.52 X1000 (4.8-10.8)
[2019-11-13 06:33] LABS: AGAP 11; ALBUMIN 2.8 g/dL (3.5-5.0); BUN 18 mg/dL (8-22); CALCIUM 8.7 mg/dL (8.8-10.2); CHLORIDE 102 mmol/L (98-107); COSMO 281; CREATININE 1.1 mg/dL (0.7-1.2); ESTIMATED GFR > 60; GLUCOSE 132 mg/dL (70-104); PHOSPHORUS 2.1 mg/dL (2.7-4.5); POTASSIUM 3.4 mmol/L (3.5-5.1); SODIUM 139 mmol/L (136-145); TCO2 26 mmol/L (25-35)
[2019-11-13 06:35] LABS: ALBUMIN 2.6 g/dL (3.5-5.0); DIRECT BILIRUBIN 0.3 mg/dL (0.00-0.20); TOTAL BILIRUBIN 0.84 mg/dL (0.20-1.00); TOTAL PROTEIN 5.2 g/dL (6.3-8.3)
--- NOTE | 2019-11-13 06:43 | Diag Imaging Result Doc PS360 ---
EXAM: CHEST-1 VIEW HISTORY: pneumonia TECHNIQUE: Single view COMPARISON: 11/12/2019 FINDINGS: No cardiomegaly. The sternal wires and surgical clips. Atelectasis versus a small infiltrate in the left lung base. Right lung remains clear. Tiny left effusion. IMPRESSION: Stable chest Electronically signed by Ronald Garcia 11/13/2019 6:41 AM
[2019-11-13] MEDS: SEROQUEL PO SCH ×2 (09:52→20:26)
[2019-11-13] MEDS: PLAVIX PO SCH (09:52)
[2019-11-13] MEDS: NORVASC PO SCH (09:52)
[2019-11-13] MEDS: VANCOMYCIN 1,500 MG in NS 250 ML IV SCH (10:42)
[2019-11-13] MEDS: ASPIRIN PO SCH (10:42)
--- NOTE | 2019-11-13 12:18 | SEPSIS: TISSUE PERFUSION ASSMT ---
Sepsis: Tissue Perfusion Assmt - Physical Exam Assessment Date: 11/13/19 Time Assessment Initialized: 10:00 Vital Signs: Last Vital Signs Temp 100.8 F H 11/13/19 11:23 Pulse 103 H 11/13/19 11:23 Resp 18 11/13/19 11:23 BP 145/55 11/13/19 11:23 Pulse Ox 99 11/13/19 11:23 Height 5 ft 10 in Weight 76.459 kg Lung Sounds: lungs clear Heart Sounds: Regular Capillary Refill Time: Less Than 2 Seconds Peripheral Pulse Evaluation: radial (R): 2+, radial (L): 2+, dorsalis-pedis (R): 2+, dorsalis-pedis (L): 2+, posterior tibialis (R): 2+, posterior tibialis (L): 2+ Skin Exam: pink - Alternative Fluid Bolus Bolus Option: Alternative Fluid Resuscitation Bolus for morbidly obese patients with a BMI >30, Refer to [facility] [place] Body Weight Chart for Reference. Is patient's BMI >30?: No Fluid Bolus dosed using the [facility] [place] Body Weight Chart: No - Impression Impression: Tissue Perfusion Adequate - Plan Plan: See Orders
--- NOTE | 2019-11-13 12:53 | PROGRESS NOTE ---
DATE: 11/13/2019 INTERVAL HISTORY: No acute events overnight. Mr. Berg' sister is currently at bedside. SUBJECTIVE: Mr. Berg keeps his eyes closed, does not appear in any distress. He does not engage in the clinical encounter meaningfully. OBJECTIVE: Vital Signs: Temperature 100.8 degrees, pulse 103, respiratory rate 18, blood pressure 145/55, he is saturating 99% on room air. HEENT: Oral cavity is dry. Lungs: Air entry bilaterally equal. No wheeze, rhonchi, or crackles. Cardiovascular: S1, S2 normal. Regular. Tachycardic. No murmur, rub, or gallop. Abdomen: Soft, nontender. Extremities: He does, in fact, have right lower extremity edema, which is more than the left lower extremity, which is chronic for him. : He has a urine catheter. LABORATORY DATA: WBC 8.5, hemoglobin 10.8, platelets of 170,000. Potassium is 3.4, BUN 18, creatinine 1.1. He does have a drop in his creatine kinase. I will get vitamin B12 and RPR levels. MICROBIOLOGY: No positive data so far. IMAGING: Chest x-ray this morning suggests a small infiltrate in the left lung base and left pleural effusion. ASSESSMENT AND PLAN: 1. Acute encephalopathy on top of baseline dementia with behavioral disturbance. The patient remains confused. His head MRI did not have any acute stroke. I will address underlying condition, and monitor him in PVC unit. Follow up Vitamin B12 and RPR. 2. Sepsis due to left lower lobe pneumonia. Continue intravenous vancomycin, intravenous Zosyn, and follow up final blood culture results. I will repeat chest x-ray as needed. 3. Type 2 myocardial infarction leading to elevated troponin with history of coronary artery disease and coronary artery bypass graft in 2002. I will continue him on his aspirin, clopidogrel, intravenous metoprolol, NTG and atorvastatin if he is able to take by mouth. Echocardiogram result is pending. Appreciate Cardiology Team's recommendation. 4. Severe protein calorie malnutrition due to poor oral intake. Continue intravenous Clinimix. 5. Others. Continue amlodipine for essential hypertension, acetaminophen as needed for fever, quetiapine for agitation, with intravenous haloperidol as needed. 6. Disposition. Monitor the patient in PVC unit. Plan of care discussed with the patient's sister. His code status has been changed to DO NOT RESUSCITATE level 1, and I had a discussion with his sister about it. Palliative Care Team on board. Continue to observe him in [facility]. cc: David Mckeon MD MTDD
--- NOTE | 2019-11-13 13:48 | NEUROLOGY PROGRESS NOTE ---
DATE: 11/13/2019 SUBJECTIVE: Mr. Berg has again developed low grade fever 100.9 earlier and 100.3 axillary just now. The WBC continues not elevated. I reviewed the chest x-ray report from this morning. He was quite agitated at times over the weekend and required medications for sedation. He was sleepy through the day yesterday and is more alert today. OBJECTIVE: On exam, he is much more alert, much more easily involved in conversation, even speaking some spontaneously. Neck continues without meningismus. He has full lateral eye movement. He moved all limbs. He seemed unable to identify this as a hospital and he did not name the hospital. He seemed to recognize sister at the bedside, but did not name her when I asked him her name. EEG was ordered yesterday but could not be done because of other studies in progress. EEG returned this morning and was not done because of echocardiogram in progress. We will re-attempt EEG later. IMPRESSION: Persistent global encephalopathy. I reviewed discussion with sister at the bedside that he has baseline cognitive impairment with typical exacerbation associated with significant medical illness. I discussed the possibility that we might need to consider lumbar puncture with sister. In light of his improved level of alertness, lack of meningismus, stable course, I do not think lumbar puncture would warp changer today. If he develops more fever or other problems, we can reconsider and sister understands that may occur. Thanks for asking Neurology to see Mr. Berg. cc: MD CHACHO Bush III
--- NOTE | 2019-11-13 14:33 | CARDIOLOGY PROGRESS NOTE ---
DATE: 11/13/2019 SUBJECTIVE: Mr. Berg has a little bit more movement today. He is still not interacting with the examiner other than he briefly opens his eyes on physical and verbal stimuli. He does not answer any questions. PHYSICAL EXAMINATION: The patient was febrile again this morning at 7:52 and 11:23 he had a temperature of 100.9 degrees and 100.8 respectively. His heart rates 103, blood pressure 145/55.General: He is in no acute distress. Cardiovascular: He sounds to be in a regular rate and rhythm. He has no obvious murmurs. He has no S3, no lower extremity edema. Chest: Clear bilaterally although he has a poor inspiratory effort. Abdomen: Soft, nontender. PERTINENT DATA: His sodium is 139, potassium 3.4, BUN 18, creatinine is 1.1. His troponins were noted from yesterday. His white count is 8.5, hematocrit 32. Echocardiogram is currently pending. ASSESSMENT: Mr. Berg is an 84-year-old gentleman who presented with acute confusion. PLAN: We reinitiated some of his antianginals yesterday. He was not on any of those secondary to being NPO. We placed him on IV beta-jamie and some topical nitroglycerin. He certainly could be experiencing low burdens of ischemia in the setting of this infection secondary to withdrawal of his antianginals in a patient with chronic severe baseline coronary disease. I do not believe this is acute coronary syndrome. We are awaiting his echocardiogram result but presently I would not do any ischemic workup and would just try to treat him medically, especially considering his severe confusion. cc: Walter Kang MD
[2019-11-13] MEDS ORDERED: VANCOMYCIN 1,750 MG in NS 250 ML IV SCH (16:00)
--- NOTE | 2019-11-13 23:57 | ECHO REPORT ---
ORDER DATE: 11/13/2019 MEASUREMENTS: Septal thickness 1.0, left ventricular internal diameter in diastole 5.5, posterior wall thickness 1.0, left ventricular internal diameter in systole 3.7, aortic root 3.4, left atrium 3.9. SUMMARY: 1. Technically difficult study due to limited acoustic window quality. Intravenous echo contrast agent Optison was utilized to enhance endocardial definition. 2. Aortic valve is trileaflet and opens normally on 2-dimensional images. Peak gradient across aortic valve is less than 5 mmHg. There is trace aortic regurgitation. Mitral and tricuspid valves are without evidence of structural abnormality while pulmonic valve is not well demonstrated. There is mild mitral regurgitation and trace tricuspid regurgitation. Aortic root is normal in size. 3. Normal left ventricular dimensions demonstrated. Estimated left ejection fraction appears to be at least 60%. No regional wall motion abnormality can be appreciated. Left atrium is upper normal in size. The right atrium, right ventricle are normal in size with grossly preserved right ventricular systolic function. 4. No pericardial effusion. 5. Inferior vena cava not well demonstrated. cc: MD Sharmila Bass MD
[2019-11-14] MEDS: LOVENOX SUBQ SCH (03:47)
[2019-11-14] MEDS: NITROGLYCERIN TOP SCH ×4 (03:47→21:13)
[2019-11-14] MEDS: LOPRESSOR IV SCH ×4 (03:47→21:13)
[2019-11-14] MEDS: ZOSYN 3.375 GM in NS 50 ML IV SCH ×4 (03:47→21:13)
[2019-11-14] MEDS: CLINIMIX E 4.25%-5% SOLUTION 1,000 ML IV SCH ×2 (07:17→10:09)
[2019-11-14 07:26] LABS: AGAP 12; BUN 20 mg/dL (8-22); CALCIUM 8.1 mg/dL (8.8-10.2); CHLORIDE 97 mmol/L (98-107); COSMO 275; CREATININE 1.1 mg/dL (0.7-1.2); ESTIMATED GFR > 60; GLUCOSE 115 mg/dL (70-104); POTASSIUM 3.4 mmol/L (3.5-5.1); SODIUM 136 mmol/L (136-145); TCO2 27 mmol/L (25-35)
--- NOTE | 2019-11-14 09:57 | PROGRESS NOTE ---
DATE: 11/14/2019 INTERVAL HISTORY: No acute events overnight. SUBJECTIVE: Mr. Berg is sleepy and does not engage in the encounter meaningfully, but does not appear in acute distress. VITALS: Temperature of 99.9 degrees, pulse 84, respiratory blood pressure 156/59. He is saturating 96% on room air. PHYSICAL EXAMINATION: He is in bilateral wrist restraints. HEENT: Oral cavity is dry. Lungs: Air entry bilaterally equal. No wheeze, rhonchi, crackles. Cardiovascular: S1, S2 normal. No murmur, rub, or gallop. Abdomen: Soft, nontender. He has urine catheter. Extremities: He has lower extremity edema affecting both feet. Neurologic: His pupils are bilaterally equal and reacting to light. He was able to squeeze my fingers both of his hands and open his eyes and open his mouth on command after repeated prompting . He is able to wiggle both toes lower extremities. LABS: Suggestive of no CBC today. Hypokalemia with potassium of 3.4, BUN is 20, creatinine 1.1. Microbiology: No positive data. No new imaging. ASSESSMENT AND PLAN: 1. Acute encephalopathy on top of baseline dementia with behavior disturbance. Though he has improved he remains confused. He had MRI, did not have acute stroke. His vitamin B12 and RPR were largely within acceptable range. Continue to address underlying conditions. 2. Sepsis due to left lower lobe pneumonia. Continue intravenous vancomycin and if he spikes fever again, I may change his intravenous Zosyn to intravenous cefepime for better CSF penetration. I will follow up with repeat chest x-ray. 3. Type 2 myocardial infarction leading to elevated troponins with history of coronary artery disease and bypass graft in 2002. Continue intravenous metoprolol, topical nitroglycerin. I will also keep him on his aspirin, clopidogrel and atorvastatin. He is able to take by mouth. Echocardiogram had ejection fraction of 60%. Appreciate cardiology team's recommendations. 4. Severe protein energy malnutrition due to poor oral intake. Continue intravenous Clinimix at reduced dose considering his lower extremity edema. 5. Others: Continue intravenous haloperidol and quetiapine as needed for agitation, amlodipine for essential hypertension. DISPOSITION: Monitor patient in PVC unit. I had a detailed discussion about plan of care with his sister at bedside yesterday. All of her questions were answered. cc: David Mckeon MD
[2019-11-14] MEDS: SEROQUEL PO SCH ×2 (10:07→21:13)
[2019-11-14] MEDS: PLAVIX PO SCH (10:07)
[2019-11-14] MEDS: ASPIRIN PO SCH (10:08)
[2019-11-14] MEDS: NORVASC PO SCH (10:08)
[2019-11-14] MEDS: POTASSIUM CHLORIDE 20 MEQ/SWI 20 MEQ/100 ML IVPB IV SCH ×2 (10:15→14:49)
[2019-11-14] MEDS: VANCOMYCIN 1,500 MG in NS 250 ML IV SCH (11:32)
--- NOTE | 2019-11-14 13:08 | NEUROLOGY PROGRESS NOTE ---
DATE: 11/14/2019 LOCATION: Room 220. SUBJECTIVE: Mr. Berg had a peaceful night, and has slept through the morning. Sister at the bedside reports he has seemed more appropriate at times. He has been afebrile today. EEG showed generalized slowing, but no evidence of seizure. IMPRESSION: Baseline cognitive impairment, presenting with global encephalopathy associated with medical illness. There has not been definite focal neurologic finding, evidence of increased intracranial pressure, or evidence of seizure. He had very low-grade fever earlier, but is not febrile now. I do not have any suggestion from Neurology standpoint today. I hope he will continue to improve. cc: Dary Arora III, MD
[2019-11-15] MEDS: CLINIMIX E 4.25%-5% SOLUTION 1,000 ML IV SCH ×2 (00:40→04:08)
[2019-11-15] MEDS: LOVENOX SUBQ SCH (03:11)
[2019-11-15] MEDS: ZOSYN 3.375 GM in NS 50 ML IV SCH (03:12)
[2019-11-15] MEDS: NITROGLYCERIN TOP SCH ×4 (03:12→20:49)
[2019-11-15] MEDS: LOPRESSOR IV SCH ×4 (03:12→20:47)
[2019-11-15 06:51] LABS: AGAP 11; BUN 22 mg/dL (8-22); CHLORIDE 97 mmol/L (98-107); COSMO 274; CREATININE 1.1 mg/dL (0.7-1.2); ESTIMATED GFR > 60; GLUCOSE 110 mg/dL (70-104); SODIUM 135 mmol/L (136-145); TCO2 27 mmol/L (25-35)
--- NOTE | 2019-11-15 10:18 | NEUROLOGY PROGRESS NOTE ---
DATE: 11/15/2019 SUBJECTIVE/OBJECTIVE: Mr. Berg continues afebrile. Chemistry profile this morning shows sodium 135, blood sugar 110. B12 level was reported 230 recently. On exam, he is awake, alert, attentive, bright, mostly cheerful. He answered questions appropriately. He was very inconsistent following commands. He was not able to answer correctly any of the questions regarding orientation. Prior to my time at the bedside, I heard him having conversation and no one was present. IMPRESSION AND PLAN: Global encephalopathy, baseline cognitive impairment, some hallucinatory behavior now. He had been febrile earlier, but afebrile in the last few days. I do not have any urgent suggestion today. If psychosis becomes prominent, he may require cautious trial with antipsychotic medicine. Eventually, cholinesterase inhibitor trial might be considered. Thanks for asking Neurology to see Mr. Berg. cc: MD CHACHO Bush III
[2019-11-15] MEDS: MAXIPIME 2 GM/NS 2 GM/100 ML IVPB IV SCH ×2 (10:29→20:48)
[2019-11-15] MEDS: NORVASC PO SCH (10:30)
[2019-11-15] MEDS: PLAVIX PO SCH (10:30)
[2019-11-15] MEDS: SEROQUEL PO SCH ×2 (10:30→20:48)
[2019-11-15] MEDS: ASPIRIN PO SCH (10:30)
--- NOTE | 2019-11-15 12:13 | Diag Imaging Result Doc PS360 ---
EXAM: ANKLE 2 VIEWS RIGHT 11/15/2019 HISTORY: Right foot and ankle pain. R/o fracture. TECHNIQUE: Right ankle two views COMMENT: There are deformities in the tibia presumably due to previous fracture. There is an apparent bone island in the distal tibia. There is plantar spurring of the calcaneus. The appearance of the ankle has not changed significantly since 04/02/2016. IMPRESSION: No acute bony abnormality. Electronically signed by Derian Perry 11/15/2019 12:11 PM
--- NOTE | 2019-11-15 12:14 | Diag Imaging Result Doc PS360 ---
EXAM: FOOT 2 VIEWS RIGHT 11/15/2019 HISTORY: Right foot and ankle pain. R/0 fracture. TECHNIQUE: Right foot two views COMMENT: There is generalized osteopenia. There is soft tissue swelling in the forefoot. There is no evidence of acute fracture or dislocation. IMPRESSION: No evidence of acute bony abnormality. Electronically signed by Derian Perry 11/15/2019 12:12 PM
--- NOTE | 2019-11-15 12:51 | PROGRESS NOTE ---
DATE: 11/15/2019 INTERVAL HISTORY: He had a fever of 99.9 yesterday. He had 1 blood pressure reading charted at 70/50 so I asked the nurse to recheck and it was 135/90. SUBJECTIVE: Mr. Berg has been more awake and alert and following commands today as compared to previous days. His restraints were discontinued. He also was given a shower. He has been complaining of right foot pain. He is alert. He follows simple commands, but does not provide meaningful information for the clinical encounter. OBJECTIVE: Vital Signs: Currently temperature 98.1 degrees, pulse 86, respiratory rate 20, blood pressure 135/96, saturating 96 on room air. General: On physical examination, he is not in acute distress. HEENT: Oral cavity is moist. Lungs: Air entry bilaterally equal. No wheeze, rhonchi. He does have crackles in left infrascapular region. Cardiovascular: S1, S2 normal. No murmur, rub, or gallop. Abdomen: Soft, nontender. Extremities: He has right leg edema, more pronounced than on the left. He also has some tenderness of the right great toe without any signs of inflammation. Input and output suggest he was negative 2.1 liters yesterday. LABS: Suggestive of sodium of 135 and chloride of 97, BUN 22, creatinine 1.1. No new microbiological data. No new imaging except foot and ankle x-rays which had old right-sided tibial fracture which was healed. ASSESSMENT AND PLAN: 1. Acute encephalopathy on top of baseline dementia with behavioral disturbance. His head CT and brain MRI were unremarkable for any acute pathology. B12 and RPR were within acceptable range. He does not have any known liver disease. I will continue to address underlying conditions and will give him quetiapine for his agitation. 2. Sepsis due to left lower lobe pneumonia. Cultures have been negative. I will continue him on intravenous vancomycin and cefepime. His Zosyn has been discontinued considering he was having spike in temperature for better CSF penetration, though the suspicion of meningitis is low. I will follow up repeat chest x-ray tomorrow . 3. Type 2 myocardial infarction leading to elevated troponins with history of coronary artery bypass graft in 2002. He has been able to take his oral medication, so I will continue his aspirin and clopidogrel. He is also on nitroglycerin topical, as well as intravenous metoprolol, which I will continue, and I will change it to oral once his oral intake becomes consistent. Echocardiogram has ejection fraction of 60% without any regional wall motion abnormality. 4. Severe protein energy malnutrition due to poor oral intake. I will stop his intravenous Clinimix to allow him to have oral diet. 5. Others, I will continue to monitor him inside the hospital and transfer him to routine medical floor. Plan of care discussed with the nursing team. Their questions have been answered. Continue physical therapy. Based on his course, I may anticipate discharge in next 24 to 48 hours back to [facility] facility. cc: David Mckeon MD
[2019-11-15] MEDS: VANCOMYCIN 1,500 MG in NS 250 ML IV SCH (13:06)
[2019-11-16] MEDS: LOPRESSOR IV SCH ×3 (03:51→15:46)
[2019-11-16] MEDS: LOVENOX SUBQ SCH (04:51)
[2019-11-16] MEDS: NITROGLYCERIN TOP SCH ×4 (04:51→15:46)
[2019-11-16] MEDS: VANCOMYCIN 1,500 MG in NS 250 ML IV SCH (05:35)
[2019-11-16 07:56] LABS: BASO# 0.01 X1000 (0.0-0.2); BASO% 0.1 % (0.0-0.8); EOS# 0.36 X1000 (0.0-0.7); HEMATOCRIT 30.2 % (42.0-52.0); HEMOGLOBIN 9.7 g/dL (14.0-18.0); IMM GRAN# 0.02 X1000 (0.0-0.04); IMM GRAN% 0.3 % (0.0-0.5); LYMPH# 0.77 X1000 (1.2-3.4); LYMPH% 10.7 % (20.5-51.1); MCH 28.6 PG (27-31); MCHC 32.1 g/dL (33-37); MCV 89.1 FL (81-99); MONO# 0.57 X1000 (0.11-0.59); MONO% 7.9 % (1.7-9.3); MPV 8.8 FL (7.4-10.4); NEUT# 5.47 X1000 (1.4-6.5); PLT 206 X1000 (130-400); RBC 3.39 XMIL (4.7-6.1); RDW 13.3 % (11.5-14.5)
--- NOTE | 2019-11-16 07:57 | Diag Imaging Result Doc PS360 ---
EXAM: CHEST-PORTABLE INDICATION: Hypoxia TECHNIQUE: One view COMPARISON: 11/13/2019 FINDINGS: The mild opacity at the left lung base seen on the previous study has grossly clear. No new consolidation is identified. Cardiac silhouette is stable. IMPRESSION: Gross resolution of the mild opacity at the left lung base by plain radiograph. Electronically signed by Sawyer Bauer 11/16/2019 7:55 AM
[2019-11-16 08:16] LABS: AGAP 10; BUN 24 mg/dL (8-22); CALCIUM 8.8 mg/dL (8.8-10.2); CHLORIDE 102 mmol/L (98-107); COSMO 280; CREATININE 1.1 mg/dL (0.7-1.2); ESTIMATED GFR > 60; GLUCOSE 100 mg/dL (70-104); POTASSIUM 3.7 mmol/L (3.5-5.1); SODIUM 138 mmol/L (136-145); TCO2 26 mmol/L (25-35)
[2019-11-16] MEDS: MAXIPIME 2 GM/NS 2 GM/100 ML IVPB IV SCH (09:06)
[2019-11-16] MEDS: NORVASC PO SCH (09:06)
[2019-11-16] MEDS: ASPIRIN PO SCH (09:07)
[2019-11-16] MEDS: PLAVIX PO SCH (09:07)
--- NOTE | 2019-11-16 12:34 | PROGRESS NOTE ---
DATE: 11/16/2019 INTERVAL HISTORY: No acute events overnight. SUBJECTIVE: Mr. Berg is sleepy, but arousable, does not appear in acute distress. He is not able to engage in the encounter meaningfully. VITALS: Temperature 98.2 degrees, pulse 81, respiratory 16, blood pressure 126/50, saturating 95 percent on room air. PHYSICAL EXAMINATION: General: He is not in acute distress. Oral cavity: Moist. Lungs: Air entry bilaterally equal. No wheeze, rhonchi, or crackles. Cardiovascular: S1, S2 normal. No murmur, rub or gallop. Abdomen: Soft, nontender. Extremities: No lower extremity edema. : He has a urine catheter. We will consider removing the catheter today. LABS: Suggestive of hemoglobin 9.7, WBC 7.2, platelet 206. His BUN is 24, creatinine 1.1. MICROBIOLOGY: No data. IMAGING: Chest x-ray performed today suggests gross resolution of the opacity by the plain radiograph. ASSESSMENT: 1. Acute encephalopathy on top of baseline dementia with behavioral disturbance. 2. Sepsis due to left lower lobe pneumonia. 3. Type 2 myocardial infarction in the setting of sepsis. 4. Severe protein energy malnutrition. 5. History of coronary artery bypass graft in 2002. PLAN: He has been on intravenous antibiotics since almost 5 days, and he has not had any fever. My plan is to potentially stop antibiotics in the next 24 hours and let him discharge. I will continue him on his home cardiovascular regimen. I will keep the family informed. I am anticipating discharge in 24 hours. cc: David Mckeon MD
--- NOTE | 2019-11-16 13:59 | NEUROLOGY PROGRESS NOTE ---
DATE: 11/16/2019 SUBJECTIVE: Mr. Berg continues to be more alert and more attentive day by day. Sister at the bedside today reports she had some conversation with him, which was more appropriate than in prior days. I reviewed again with her the concept of exacerbation of baseline cognitive impairment associated with medical illness and hospitalization. I do not have any new suggestion from Neurology standpoint. Thanks for asking us to see Mr. Berg. cc: Dary Arora III, MD
--- NOTE | 2019-11-16 13:59 | DISCHARGE SUMMARY ---
ADMISSION DATE: 11/08/2019 DISCHARGE DATE: DATE OF DISCHARGE: Likely 11/16/2019 DISCHARGE DISPOSITION: Rehab. DISCHARGE CONDITION: Hemodynamically stable. Mr. Berg is not in acute distress. He is eating mechanical soft diet with help. He is breathing well on room air. Chest x-ray shows improvement. DISCHARGE DIAGNOSIS: 1. Acute encephalopathy. 2. Dementia with behavioral disturbance. 3. Sepsis due to left lower lobe pneumonia . 4. Type 2 myocardial infarction in the setting of sepsis. 5. Severe protein energy malnutrition. 6. Hypokalemia. 7. Acute kidney injury in the setting of sepsis. 8. History of coronary artery disease status post coronary artery bypass graft in 2002. 9. History of vascular dementia. 10. History of hyperlipidemia. 11. Essential hypertension. Patient's code status do not resuscitate level 1. MEDICATIONS: Atorvastatin 10 mg at nighttime, aspirin 81 mg daily, clopidogrel 75 mg daily, metoprolol succinate 50 mg extended release 24 hours daily, amlodipine 5 mg daily, lisinopril 40 mg daily, nitroglycerin 1/2 inch topical every 6 hours hold if systolic blood pressure is less than 110. CURRENT VITALS: Temperature 98 degrees, pulse 79, respiratory 24, blood pressure acceptable 96 on room air. PHYSICAL EXAMINATION: Mr. Berg is not in acute distress. Oral cavity is moist. Air entry bilateral equal, no wheeze or crackles. S1 normal, no murmur or gallop. Abdomen: Soft, nontender. No lower extremity edema. His urine catheter was ordered to be removed. He is alert, he is oriented to himself however he does have memory impairment and he was able to follow simple commands. LABS: At the time of discharge WBC 7.2, hemoglobin 9.7, platelet 206,000. Sodium 138, potassium 3.7, BUN 24, creatinine 1.1, magnesium 1.9. Troponin on admission was 194 which was decreasing to 178. Lactate on presentation was 2.6 which was improved to 0.8. RPR, urine Legionella and streptococcal antigens were negative. Blood culture, influenza screen, urine culture did not have any growth. IMAGING: Head and cervical spine CT did not have any hemorrhage, injury or acute fracture. Lumbar spine CT had advanced degenerative and senescent changes without any acute disease. Thoracic spine had advanced degenerative and senescent changes without any acute disease. Brain MRI on November 08 had chronic ischemic changes of the brain without any acute process. Extremity venous studies did not have any evidence of DVT or superficial venous thrombosis in any of the lower extremities. Chest x-ray on November 16 had gross resolution of mild opacity at the left lung base by plain radiograph. Electrocardiogram on presentation had normal sinus rhythm possible left atrial enlargement, left axis deviation, left ventricular hypertrophy with repolarization abnormality. Echocardiogram November 13 had ejection fraction of 60% without any regional wall motion abnormality. CONSULTATION: 1. Neurologist Dr. Arora. 2. [employer] Specialist Dr. Kang. 3. EEG on November 08 had diffuse encephalopathy changes and it was nonspecific however absence of epileptiform discharges on a single EEG did not exclude a clinical diagnosis of seizures but there was nothing on the record to suggest the presence of seizure disorder. HOSPITAL COURSE: Mr. Berg is 84 year man who initially presented on 11/08/2019 with chief complaints of confusion, weakness of about 24 hours duration. He had baseline dementia and it had started becoming progressively worse over last few days. He used to live alone and since last 48 hours before presentation he was acting in a bizarre fashion, when he was talked on the phone by the family on the day of presentation he appeared confused and later on when family went to see him he was noticed to be lying on the floor not responding well and he was found lethargic and difficult to arouse so EMS was called and patient was brought to the emergency room. In the emergency room he was found to have temperature of 97.7 degrees which increased to 100.9 48 hours later, he had he had pulse of 104, respiratory rate of 15, blood pressure of 142/72 and he was saturating 98% on room air. On initial lab evaluation he was found to have leukocytosis of 15,000 and acute kidney injury with creatinine of 1.7 and lactic acidosis of 2.4. Initial imaging was rather unremarkable except infiltrate in the left lower lung. He was diagnosed with acute encephalopathy, suspected progression of vascular dementia and was admitted for further management. He was started on intravenous fluid resuscitation for rhabdomyolysis and acute kidney injury. Later on during the course of the hospitalization he was also noticed to have left lower lobe pneumonia on the repeat chest x-ray and was started on intravenous antibiotics. Neurologist was consulted and EEG was performed which had detected global encephalopathy. With intravenous fluids, intravenous antibiotics patient's clinical condition improved and he started becoming more awake and alert, by the time of this dictation patient received at least 5 days of intravenous antibiotics so he may not need any more antibiotics at the time of discharge. His chest x-ray also suggests clearing of the left lower lobe infiltrate. It was thought patient's acute encephalopathy was progression of his dementia and on top of that he may have had sepsis from left lower lobe pneumonia which probably had tipped him over which he improved and this appears to be his new baseline where he is awake and alert, he needs assistance with his activities of daily living. Occasionally he verbalizes but he is not able to engage in the conversation meaningfully. Plan is to discharge him to rehab. TIME SPENT: More than 30 minutes. cc: David Mckeon MD MTDD
[2019-11-16 17:27] VITALS: BP 137/54
[2019-11-16] MEDS ORDERED: SEROQUEL PO SCH (21:00)
--- NOTE | 2019-11-20 08:31 | EEG REPORT ---
DATE: 11/12/2019 EEG NUMBER: [id number] COMMENT: This is a digitally recorded EEG on an 84-year-old patient with baseline cognitive impairment, poor responsiveness. FINDINGS: Most of the record is recorded in drowsing with generalized slowing reaching 6 hertz centrally and posteriorly, higher amplitude 2-3 hertz frontally bilaterally. Sustained posterior dominant rhythm was not identified. Eye blink and yawning artifacts were sometimes prominent. Photic stimulation did not significantly alter the record. No definite epileptiform discharge was identified. INTERPRETATION: Abnormal EEG because of generalized slowing. CORRELATION: This is indicative of a diffuse encephalopathy and is nonspecific. cc: MD Sharmila Bush III, [facility]
== END 2019-11-16 17:45 | DRG 871 ==
LOC: ED 20:34 → SUATTDRO 11-08 03:43 → EDIPHOLD 11-08 03:43 → 4N 11-08 08:25 → 2N 11-11 14:05 → 3N 11-15 14:01
PROVIDERS: ATTEND Internal Medicine